=== PATIENT | female | born 1955 | race African-American/Black ===

== ENCOUNTER 2017-01-25 13:48 | Inpatient (IN) | payer MEDICARE, MEDICAID ==
[~2017-01-25] VITALS: Ht 146.1 cm; Wt 43.1 kg
[~2017-01-25 13:48] MED LIST: ALBU6.7H INH; INDO-53 PO; IPRA0.2S51 NEB; OMEP20TA80 PO; PRED10TA PO; PROAIR IH; THEO80SO4 PO; TIOT4MIS2 INH
[2017-01-25] MEDS ORDERED: METHYLPREDNISOLONE SOD SUCC 125 MG/2 ML VIAL IV STA (14:23)
[2017-01-25] MEDS ORDERED: IPRATROPIUM BROMIDE (0.02%) 0.5MG/2.5ML NEB HHN STA (14:23)
[2017-01-25] MEDS ORDERED: ALBUTEROL (0.083%) 2.5MG/3ML NEB HHN SCH (14:30)
[2017-01-25 14:53] LABS: BASOPHILS % 0.4 % (0.0-2.0); EOSINOPHILS % 0.2 % (0.0-5.0); HEMATOCRIT. 40.5 % (36.0-48.0); HEMOGLOBIN. 13.1 g/dL (12.0-16.0); LYMPHOCYTES % 8.3 % (20.0-50.0); MEAN CORPUSCULAR HEMOGLOBIN 28.9 pg (28.0-32.0); MEAN CORPUSCULAR VOLUME 89.5 fL (81.0-99.0); MONOCYTES % 9.2 % (2.0-8.0); NEUTROPHILS % 81.9 % (40.0-76.0); PLATELET 311 x1000/uL (130-400); RED BLOOD CELL COUNT 4.52 mill/uL (4.2-5.4); RED CELL DISTRIBUTION WIDTH 15.5 % (11.6-14.6)
[2017-01-25 15:00] LABS: CHLORIDE 96 mEq/L (98-107)
[2017-01-25 15:09] LABS: TROPONIN I 0.02 ng/mL (0.00-0.04)
[2017-01-25 15:10] LABS: CARBON DIOXIDE 41 mEq/L (21-32)
[2017-01-25 15:12] LABS: *AMPHETAMINES SCREEN URINE NEGATIVE (NEGATIVE); *BARBITURATES SCREEN URINE NEGATIVE (NEGATIVE); *BENZODIAZEPINES SCREEN URINE NEGATIVE (NEGATIVE); *COCAINE SCREEN URINE NEGATIVE (NEGATIVE); CANNABINOID URINE SCREEN NEGATIVE (NEGATIVE); METHADONE URINE SCREEN NEGATIVE (NEGATIVE); OPIATES URINE SCREEN NEGATIVE (NEGATIVE); PHENCYCLIDINE URINE SCREEN NEGATIVE (NEGATIVE)
[2017-01-25 16:18] LABS: BG BASE EXCESS 11.4 mmol/L (-2.0-2.0); BG CARBOXYHEMOGLOBIN 2.9 % (0.5-1.5); BG DEOXYHEMOGLOBIN 0.9 % (0.0-5.0); BG FRACTION INSPIRED OXYGEN 60; BG HCO3 ACT 40.4 mmol/L (22.0-26.0); BG METHEMOGLOBIN 0.7 % (0.0-1.5); BG OXYGEN SATURATION 99.1 % (92.0-98.5); BG OXYHEMOGLOBIN 95.5 % (94.0-97.0); BG PH 7.338 (7.350-7.450); BG PO2 269.8 mmHg (75.0-100.0); BG SAMPLE SITE RIGHT BRACHIAL; BG TOTAL HEMOGLOBIN 13.1 g/dL (12.0-18.0)
[2017-01-25] MEDS ORDERED: LORAZEPAM 0.5MG TABLET PO ONE (16:45)
[2017-01-25] MEDS ORDERED: DOCUSATE SODIUM 100MG CAPSULE PO PRN (18:30)
[2017-01-25] MEDS ORDERED: ONDANSETRON HCL 4MG/2ML VIAL IV PRN (18:30)
[2017-01-25] MEDS ORDERED: LORAZEPAM 2MG/ML CPJ IV PRN (18:30)
[2017-01-25] MEDS ORDERED: NA PHOS,M-B/NA PHOS,DI-BA ENEMA 118ML PR PRN (18:30)
[2017-01-25] MEDS ORDERED: MAGNESIUM/ALUMINUM HYDROXIDE/SIMETHICONE 30ML UDC PO PRN (18:30)
[2017-01-25] MEDS ORDERED: ACETAMINOPHEN 325MG TABLET PO PRN (18:30)
[2017-01-25] MEDS ORDERED: GUAIFENESIN 200MG/10ML SUGAR FREE UDC PO PRN (18:30)
[2017-01-25] MEDS ORDERED: CLONIDINE 0.1MG TABLET PO PRN (18:30)
[2017-01-25 18:42] VITALS: BP 111/81
[2017-01-25 20:00] VITALS: BP 127/90
[2017-01-25] MEDS: IPRATROPIUM/ALBUTEROL 0.5-3(2.5)MG/3ML NEB INH PRN ×2 (20:41→23:54)
[2017-01-25] MEDS: METHYLPREDNISOLONE SOD SUCC 125 MG/2 ML VIAL IV SCH (21:24)
[2017-01-25] MEDS: LEVOFLOXACIN 500MG PREMIX 100 ML IV SCH (21:24)
[2017-01-25 22:00] VITALS: BP 143/89
[2017-01-26] VITALS (10 sets, daily range): BP systolic 136–172; BP diastolic 78–109
[2017-01-26 01:45] LABS: CHLORIDE 95 mEq/L (98-107); TROPONIN I < 0.02 ng/mL (0.00-0.04)
[2017-01-26] MEDS: METHYLPREDNISOLONE SOD SUCC 125 MG/2 ML VIAL IV SCH ×4 (02:25→20:56)
[2017-01-26 02:45] LABS: CARBON DIOXIDE 40 mEq/L (21-32)
[2017-01-26] MEDS: IPRATROPIUM/ALBUTEROL 0.5-3(2.5)MG/3ML NEB INH PRN ×5 (04:14→20:50)
[2017-01-26 06:37] LABS: HEMATOCRIT. 40.8 % (36.0-48.0); HEMOGLOBIN. 13.3 g/dL (12.0-16.0); MEAN CORPUSCULAR HEMOGLOBIN 29.3 pg (28.0-32.0); MEAN CORPUSCULAR VOLUME 89.9 fL (81.0-99.0); MEAN PLATELET VOLUME 8.9 fl (7.4-10.4); PLATELET 320 x1000/uL (130-400); RED BLOOD CELL COUNT 4.53 mill/uL (4.2-5.4); RED CELL DISTRIBUTION WIDTH 15.1 % (11.6-14.6)
[2017-01-26 08:09] LABS: CHLORIDE 94 mEq/L (98-107); LDL CHOLESTEROL 77 mg/dL (5-100); T4 FREE 1.02 ng/dL (0.76-1.46); TROPONIN I < 0.02 ng/mL (0.00-0.04)
[2017-01-26 08:16] LABS: CARBON DIOXIDE 42 mEq/L (21-32)
[2017-01-26] MEDS: ASPIRIN 81MG EC TABLET PO SCH ×2 (09:00→09:51)
[2017-01-26] MEDS: ENOXAPARIN 30MG/0.3ML SYR SUBCUT SCH (09:00)
[2017-01-26] MEDS ORDERED: POTASSIUM CHLORIDE 20MEQ/PACKET PO NR ×2 (09:00→13:00)
[2017-01-26 09:18] LABS: HDL CHOLESTEROL 157 mg/dL (40-59)
[2017-01-26] MEDS: LEVOFLOXACIN 500MG PREMIX 100 ML IV SCH (20:57)
[2017-01-26 20:59] LABS: PLATELET ESTIMATE NORMAL
[2017-01-27] VITALS (11 sets, daily range): BP systolic 121–152; BP diastolic 66–97
[2017-01-27] MEDS: IPRATROPIUM/ALBUTEROL 0.5-3(2.5)MG/3ML NEB INH PRN ×4 (00:57→13:03)
[2017-01-27] MEDS: METHYLPREDNISOLONE SOD SUCC 125 MG/2 ML VIAL IV SCH ×4 (01:24→20:39)
[2017-01-27 07:02] LABS: HEMATOCRIT. 41.4 % (36.0-48.0); HEMOGLOBIN. 13.2 g/dL (12.0-16.0); MEAN CORPUSCULAR HEMOGLOBIN 29.2 pg (28.0-32.0); MEAN CORPUSCULAR VOLUME 91.3 fL (81.0-99.0); MEAN PLATELET VOLUME 8.7 fl (7.4-10.4); PLATELET 316 x1000/uL (130-400); RED BLOOD CELL COUNT 4.54 mill/uL (4.2-5.4); RED CELL DISTRIBUTION WIDTH 15.9 % (11.6-14.6)
[2017-01-27 07:12] LABS: CHLORIDE 97 mEq/L (98-107)
[2017-01-27 08:05] LABS: CARBON DIOXIDE 40 mEq/L (21-32)
[2017-01-27] MEDS: ASPIRIN 81MG EC TABLET PO SCH (08:20)
[2017-01-27] MEDS: ENOXAPARIN 30MG/0.3ML SYR SUBCUT SCH (08:21)
[2017-01-27 14:49] LABS: PLATELET ESTIMATE NORMAL
[2017-01-27] MEDS: IPRATROPIUM/ALBUTEROL 0.5-3(2.5)MG/3ML NEB HHN SCH ×2 (16:10→19:58)
[2017-01-27] MEDS: LEVOFLOXACIN 500MG PREMIX 100 ML IV SCH (20:01)
[2017-01-28] VITALS (10 sets, daily range): BP systolic 120–157; BP diastolic 73–97
[2017-01-28] MEDS: IPRATROPIUM/ALBUTEROL 0.5-3(2.5)MG/3ML NEB HHN SCH ×4 (00:05→13:20)
[2017-01-28] MEDS: METHYLPREDNISOLONE SOD SUCC 125 MG/2 ML VIAL IV SCH ×3 (02:06→13:32)
[2017-01-28 06:34] LABS: HEMATOCRIT. 39.8 % (36.0-48.0); HEMOGLOBIN. 12.7 g/dL (12.0-16.0); MEAN CORPUSCULAR VOLUME 90.8 fL (81.0-99.0); MEAN PLATELET VOLUME 8.9 fl (7.4-10.4); PLATELET 297 x1000/uL (130-400); RED BLOOD CELL COUNT 4.39 mill/uL (4.2-5.4); RED CELL DISTRIBUTION WIDTH 15.4 % (11.6-14.6)
[2017-01-28 06:52] LABS: CARBON DIOXIDE 38 mEq/L (21-32); CHLORIDE 98 mEq/L (98-107)
[2017-01-28] MEDS: ASPIRIN 81MG EC TABLET PO SCH (08:11)
[2017-01-28] MEDS: ENOXAPARIN 30MG/0.3ML SYR SUBCUT SCH (08:11)
[2017-01-28 09:07] LABS: PLATELET ESTIMATE NORMAL
[2017-01-28] MEDS ORDERED: LEVOFLOXACIN 500MG TABLET PO SCH (20:00)
== END 2017-01-28 16:08 | disposition home or self-care (01) | DRG 177 ==
LOC: ER 15:28 → 3WST 16:40 → ENRESERV 17:05
PROVIDERS: ADMIT Internal Medicine; ATTEND Internal Medicine
DX: J69.0 Pneumonitis due to inhalation of food and vomit (principal); J96.00 Acute respiratory failure, unspecified whether with hypoxia or hypercapnia; I11.0 Hypertensive heart disease with heart failure; R65.10 Systemic inflammatory response syndrome (SIRS) of non-infectious origin without acute organ dysfunction; I50.9 Heart failure, unspecified; E46 Unspecified protein-calorie malnutrition; J44.1 Chronic obstructive pulmonary disease with (acute) exacerbation; J44.0 Chronic obstructive pulmonary disease with (acute) lower respiratory infection; Z68.20 Body mass index [BMI] 20.0-20.9, adult; Z79.899 Other long term (current) drug therapy; Z82.49 Family history of ischemic heart disease and other diseases of the circulatory system; Z88.6 Allergy status to analgesic agent; Z91.010 Allergy to peanuts; Z91.018 Allergy to other foods; Z79.51 Long term (current) use of inhaled steroids; Z90.49 Acquired absence of other specified parts of digestive tract
CPT/HCPCS: 36415; 36600; 71010; 80048; 80053; 80061; 80305; 82375; 82805; 83880; 84439; 84443; 84484; 85025; 85610; 93005; 94640; 94664; 96374; 99291; J1650; J1956; J2930; J7050; J7611; J7620

== ENCOUNTER 2017-03-28 09:24 | Inpatient (IN) | payer MEDICARE, MEDICAID ==
[~2017-03-28] VITALS: Ht 144.8 cm; Wt 44.0 kg
[~2017-03-28 09:24] MED LIST changes: +OMEP20TA2 PO; -OMEP20TA80 PO
[2017-03-28] MEDS ORDERED: SODIUM CHLORIDE 0.9% 1,000 ML IV ONE (09:45)
[2017-03-28] MEDS ORDERED: IPRATROPIUM BROMIDE (0.02%) 0.5MG/2.5ML NEB HHN STA (09:52)
[2017-03-28] MEDS ORDERED: ALBUTEROL (0.083%) 2.5MG/3ML NEB HHN STA (09:52)
[2017-03-28] MEDS ORDERED: METHYLPREDNISOLONE SOD SUCC 125 MG/2 ML VIAL IV STA (09:52)
[2017-03-28] MEDS ORDERED: MAGNESIUM 2 G PREMIX 50 ML IV ONE (10:00)
[2017-03-28 10:26] LABS: BASOPHILS % 0.9 % (0.0-2.0); EOSINOPHILS % 0.5 % (0.0-5.0); HEMATOCRIT. 37.8 % (36.0-48.0); LYMPHOCYTES % 9.1 % (20.0-50.0); MEAN CORPUSCULAR VOLUME 87.8 fL (81.0-99.0); MEAN PLATELET VOLUME 8.2 fl (7.4-10.4); MONOCYTES % 8.7 % (2.0-8.0); NEUTROPHILS % 80.8 % (40.0-76.0); PLATELET 417 x1000/uL (130-400); RED CELL DISTRIBUTION WIDTH 13.9 % (11.6-14.6)
[2017-03-28 10:28] LABS: PARTIAL THROMBOPLASTIN TIME 25.7 sec (23.4-31.0)
[2017-03-28 10:37] LABS: CARBON DIOXIDE 33 mEq/L (21-32); CHLORIDE 99 mEq/L (98-107); CREATINE KINASE 127 IU/L (26-192); CREATINE KINASE MB FRACTION 2.8 ng/mL (0.5-3.6); TROPONIN I < 0.02 ng/mL (0.00-0.04)
[2017-03-28] MEDS ORDERED: CLONIDINE 0.1MG TABLET PO PRN (11:00)
[2017-03-28] MEDS ORDERED: ACETAMINOPHEN 325MG TABLET PO PRN (11:00)
[2017-03-28] MEDS ORDERED: ONDANSETRON HCL 4MG/2ML VIAL IV PRN (11:00)
[2017-03-28 11:30] LABS: TOTAL IRON BINDING CAPACITY 426 ug/dL (250-450)
[2017-03-28] MEDS ORDERED: PANTOPRAZOLE SODIUM 40 MG/VIAL IV ONE (12:30)
[2017-03-28 12:46] LABS: BG BASE EXCESS 4.6 mmol/L (-2.0-2.0); BG CARBOXYHEMOGLOBIN 0.8 % (0.5-1.5); BG DEOXYHEMOGLOBIN 0.8 % (0.0-5.0); BG FRACTION INSPIRED OXYGEN 60; BG METHEMOGLOBIN 0.2 % (0.0-1.5); BG OXYGEN SATURATION 99.2 % (92.0-98.5); BG OXYHEMOGLOBIN 98.2 % (94.0-97.0); BG PH 7.291 (7.350-7.450); BG PO2 279.4 mmHg (75.0-100.0); BG SAMPLE SITE RIGHT BRACHIAL; BG TOTAL HEMOGLOBIN 11.7 g/dL (12.0-18.0)
[2017-03-28 13:02] LABS: CLARITY URINE CLEAR (CLEAR); COLOR URINE YELLOW (YELLOW); GLUCOSE URINE NEGATIVE (NEGATIVE); KETONES URINE TRACE (NEGATIVE); LEUKOCYTE ESTERASE URINE NEGATIVE (NEGATIVE); NITRITE URINE NEGATIVE (NEGATIVE); OCCULT BLOOD URINE 2+ (NEGATIVE); PROTEIN URINE NEGATIVE (NEGATIVE); SPECIFIC GRAVITY URINE 1.019 (1.005-1.030); UROBILINOGEN URINE 0.2 E.U./dL (0.2-1.0)
[2017-03-28 13:30] LABS: *AMPHETAMINES SCREEN URINE NEGATIVE (NEGATIVE); *BARBITURATES SCREEN URINE NEGATIVE (NEGATIVE); *BENZODIAZEPINES SCREEN URINE NEGATIVE (NEGATIVE); *COCAINE SCREEN URINE NEGATIVE (NEGATIVE); CANNABINOID URINE SCREEN NEGATIVE (NEGATIVE); METHADONE URINE SCREEN NEGATIVE (NEGATIVE); OPIATES URINE SCREEN NEGATIVE (NEGATIVE); PHENCYCLIDINE URINE SCREEN NEGATIVE (NEGATIVE)
[2017-03-28] MEDS: TRAMADOL 50MG TABLET PO PRN (15:33)
[2017-03-28 17:58] LABS: HEMOGLOBIN 10.9 g/dL (12.0-16.0)
[2017-03-28 22:30] VITALS: BP 125/80
[2017-03-28 23:00] VITALS: BP 125/80
[2017-03-28 23:32] LABS: HEMATOCRIT 34.7 % (36.0-48.0); HEMOGLOBIN 11.2 g/dL (12.0-16.0)
[2017-03-28] MEDS: METHYLPREDNISOLONE SOD SUCC 125 MG/2 ML VIAL IV SCH (23:43)
[2017-03-29] VITALS: BP 128/75
[2017-03-29] MEDS ORDERED: ALEN70TA3 PO (00:32)
[2017-03-29 04:00] VITALS: BP 140/83
[2017-03-29] MEDS: METHYLPREDNISOLONE SOD SUCC 125 MG/2 ML VIAL IV SCH ×3 (05:35→17:32)
[2017-03-29 07:05] LABS: HEMATOCRIT. 34.5 % (36.0-48.0); MEAN PLATELET VOLUME 8.2 fl (7.4-10.4); PLATELET 412 x1000/uL (130-400); RED BLOOD CELL COUNT 3.92 mill/uL (4.2-5.4); RED CELL DISTRIBUTION WIDTH 13.8 % (11.6-14.6)
[2017-03-29 07:43] LABS: CARBON DIOXIDE 32 mEq/L (21-32); CHLORIDE 100 mEq/L (98-107); HDL CHOLESTEROL 108 mg/dL (40-59); LDL CHOLESTEROL 88 mg/dL (5-100)
[2017-03-29 08:00] VITALS: BP 142/77
[2017-03-29] MEDS: IPRATROPIUM/ALBUTEROL 0.5-3(2.5)MG/3ML NEB INH PRN ×3 (08:39→16:24)
[2017-03-29 11:11] LABS: PLATELET ESTIMATE SLIGHTLY INCREASED
[2017-03-29 12:00] VITALS: BP 141/77
[2017-03-29 14:16] LABS: HEMATOCRIT 33.1 % (36.0-48.0); HEMOGLOBIN 10.8 g/dL (12.0-16.0)
[2017-03-29 16:00] VITALS: BP 136/73
[2017-03-29] MEDS ORDERED: BISACODYL 5MG TABLET PO SCH ×2 (16:00→20:00)
[2017-03-29] MEDS ORDERED: SORBITOL 70% SOLN 30ML PO SCH ×2 (16:00→20:00)
[2017-03-29 20:00] VITALS: BP 145/72
[2017-03-29] MEDS: IPRATROPIUM/ALBUTEROL 0.5-3(2.5)MG/3ML NEB INH SCH (20:58)
[2017-03-29 21:58] LABS: BG BASE EXCESS 3.6 mmol/L (-2.0-2.0); BG CARBOXYHEMOGLOBIN 0.3 % (0.5-1.5); BG DEOXYHEMOGLOBIN 8.2 % (0.0-5.0); BG FRACTION INSPIRED OXYGEN 21; BG HCO3 ACT 29.6 mmol/L (22.0-26.0); BG METHEMOGLOBIN 0.3 % (0.0-1.5); BG OXYGEN SATURATION 91.8 % (92.0-98.5); BG OXYHEMOGLOBIN 91.2 % (94.0-97.0); BG PH 7.381 (7.350-7.450); BG PO2 64.8 mmHg (75.0-100.0); BG SAMPLE SITE RIGHT RADIAL; BG TOTAL HEMOGLOBIN 11.5 g/dL (12.0-18.0); BG VENT MODE ROOM AIR
[2017-03-29 23:24] LABS: HEMATOCRIT 34.8 % (36.0-48.0); HEMOGLOBIN 11.4 g/dL (12.0-16.0)
[2017-03-29] MEDS: TRAMADOL 50MG TABLET PO PRN (23:57)
[2017-03-30] VITALS (7 sets, daily range): BP systolic 118–139; BP diastolic 66–80
[2017-03-30] MEDS ORDERED: SORBITOL 70% SOLN 30ML PO NR (00:01)
[2017-03-30] MEDS: THEOPHYLLINE ANHYDROUS 80 MG/15 ML 120ML PO SCH ×4 (00:04→21:55)
[2017-03-30] MEDS: METHYLPREDNISOLONE SOD SUCC 40 MG/ML VIAL IV SCH ×5 (00:30→23:53)
[2017-03-30] MEDS: IPRATROPIUM/ALBUTEROL 0.5-3(2.5)MG/3ML NEB INH SCH ×6 (01:03→21:21)
[2017-03-30 07:12] LABS: INR 0.9; PARTIAL THROMBOPLASTIN TIME 21.7 sec (23.4-31.0); PROTHROMBIN TIME 9.8 sec (9.4-11.6)
[2017-03-30 07:20] LABS: HEMATOCRIT 33.7 % (36.0-48.0); HEMOGLOBIN 10.8 g/dL (12.0-16.0)
[2017-03-30] MEDS ORDERED: SIMETHICONE 40 MG/0.6 ML 30ML ONE (14:10)
[2017-03-30] MEDS ORDERED: SODIUM CHLORIDE 0.9% 10ML VIAL ONE (14:10)
[2017-03-30] MEDS ORDERED: MIDAZOLAM HCL 5 MG/5 ML VIAL ONE (15:58)
[2017-03-30] MEDS ORDERED: FENTANYL CITRATE/PF 50MCG/ML 2ML VIAL ONE (15:58)
[2017-03-30 16:14] LABS: HEMATOCRIT 30.7 % (36.0-48.0); HEMOGLOBIN 9.9 g/dL (12.0-16.0)
[2017-03-30] MEDS ORDERED: FENTANYL CITRATE/PF 50MCG/ML 2ML VIAL IV PRN (16:18)
[2017-03-30] MEDS ORDERED: MIDAZOLAM HCL 5 MG/5 ML VIAL IV PRN (16:18)
[2017-03-30 23:40] LABS: HEMATOCRIT 31.8 % (36.0-48.0); HEMOGLOBIN 10.2 g/dL (12.0-16.0)
[2017-03-31] VITALS: BP 125/63
[2017-03-31] MEDS: IPRATROPIUM/ALBUTEROL 0.5-3(2.5)MG/3ML NEB INH SCH ×6 (01:35→20:41)
[2017-03-31 04:00] VITALS: BP 125/75
[2017-03-31] MEDS: THEOPHYLLINE ANHYDROUS 80 MG/15 ML 120ML PO SCH ×3 (05:46→23:12)
[2017-03-31 08:00] VITALS: BP 124/55
[2017-03-31] MEDS: METHYLPREDNISOLONE SOD SUCC 40 MG/ML VIAL IV SCH ×2 (09:34→16:04)
[2017-03-31 12:00] VITALS: BP 132/70
[2017-03-31 16:00] VITALS: BP 124/74
[2017-03-31 20:00] VITALS: BP 131/70
[2017-04-01] MEDS: IPRATROPIUM/ALBUTEROL 0.5-3(2.5)MG/3ML NEB INH SCH ×4 (00:32→12:08)
[2017-04-01 04:00] VITALS: BP 127/63
[2017-04-01 06:28] LABS: HEMOGLOBIN. 10.5 g/dL (12.0-16.0); MEAN CORPUSCULAR HEMOGLOBIN 27.6 pg (28.0-32.0); MEAN CORPUSCULAR VOLUME 87.2 fL (81.0-99.0); MEAN PLATELET VOLUME 8.6 fl (7.4-10.4); PLATELET 541 x1000/uL (130-400); RED BLOOD CELL COUNT 3.78 mill/uL (4.2-5.4); RED CELL DISTRIBUTION WIDTH 13.8 % (11.6-14.6)
[2017-04-01 06:30] LABS: CARBON DIOXIDE 35 mEq/L (21-32); CHLORIDE 98 mEq/L (98-107)
[2017-04-01] MEDS: THEOPHYLLINE ANHYDROUS 80 MG/15 ML 120ML PO SCH ×2 (06:34→13:59)
[2017-04-01 08:00] VITALS: BP 121/68
[2017-04-01] MEDS ORDERED: PREDNISONE 20MG TABLET PO SCH (09:00)
[2017-04-01] MEDS ORDERED: POTASSIUM CHLORIDE 20MEQ TABLET SR PO NR (11:30)
[2017-04-01 12:00] VITALS: BP 121/75
[2017-04-01 13:09] VITALS: BP 121/75
[2017-04-01 17:17] LABS: PLATELET ESTIMATE INCREASED
== END 2017-04-01 17:10 | disposition home or self-care (01) | DRG 377 ==
LOC: ER 09:24 → 8WST 10:42 → EDBEDREQSVC 10:43 → EDBEDREQ 10:43 → EDBEDREQTM 10:43 → ENRESERV 18:41 → CANRESERV 18:41 → EDBEDREQSVC 21:05 → ENRESERV 21:21
PROVIDERS: ADMIT Internal Medicine Nephrology; ATTEND Internal Medicine Nephrology
PROC: 0DJD8ZZ Inspection of Lower Intestinal Tract, Via Natural or Artificial Opening Endoscopic (ICD-10-PCS; principal; 2017-03-30 16:00)
DX: K92.2 Gastrointestinal hemorrhage, unspecified (principal); J96.21 Acute and chronic respiratory failure with hypoxia; E87.2 Acidosis; E46 Unspecified protein-calorie malnutrition; J44.1 Chronic obstructive pulmonary disease with (acute) exacerbation; K57.30 Diverticulosis of large intestine without perforation or abscess without bleeding; K64.8 Other hemorrhoids; I10 Essential (primary) hypertension; M19.90 Unspecified osteoarthritis, unspecified site; D72.829 Elevated white blood cell count, unspecified; E78.5 Hyperlipidemia, unspecified; M10.9 Gout, unspecified; T38.0X5A Adverse effect of glucocorticoids and synthetic analogues, initial encounter; Y92.89 Other specified places as the place of occurrence of the external cause; Z82.49 Family history of ischemic heart disease and other diseases of the circulatory system; Z87.891 Personal history of nicotine dependence; Z90.49 Acquired absence of other specified parts of digestive tract; Z68.21 Body mass index [BMI] 21.0-21.9, adult; Z88.6 Allergy status to analgesic agent; Z91.010 Allergy to peanuts; Z88.8 Allergy status to other drugs, medicaments and biological substances; Z91.018 Allergy to other foods; Z87.11 Personal history of peptic ulcer disease; Z79.01 Long term (current) use of anticoagulants
CPT/HCPCS: 36415; 36600; 71010; 74176; 80048; 80053; 80061; 80198; 80305; 81001; 82270; 82375; 82550; 82553; 82805; 83540; 83550; 83690; 83880; 84484; 85014; 85018; 85025; 85610; 85730; 86850; 86900; 87040; 87086; 93005; 93306; 93970; 94640; 94644; 94664; 96365; 96375; 99152; 99153; 99291; A4216; C1893; C9113; J2250; J2920; J2930; J3010; J3475; J7030; J7512; J7611; J7620

== ENCOUNTER 2017-08-23 08:37 | Inpatient (IN) | payer MEDICARE, MEDICAID ==
[~2017-08-23] VITALS: Ht 152.4 cm; Wt 42.7 kg
[2017-08-23] VITALS (7 sets, daily range): BP systolic 123–154; BP diastolic 85–109
[~2017-08-23 08:37] MED LIST changes: +ALBU6.7H IH; -ALBU6.7H INH; +ALEN70TA3 PO; -INDO-53 PO; +INDO50CA2 PO; -IPRA0.2S51 NEB; -PRED10TA PO; +PRED5TAB48 PO; -THEO80SO4 PO
[2017-08-23] MEDS ORDERED: METHYLPREDNISOLONE SOD SUCC 125 MG/2 ML VIAL IV STA (08:56)
[2017-08-23] MEDS ORDERED: IPRATROPIUM BROMIDE (0.02%) 0.5MG/2.5ML NEB HHN STA (08:56)
[2017-08-23] MEDS ORDERED: ALBUTEROL (0.083%) 2.5MG/3ML NEB HHN STA (08:56)
[2017-08-23] MEDS ORDERED: MAGNESIUM 2 G PREMIX 50 ML IV ONE (09:45)
[2017-08-23 10:44] LABS: CHLORIDE 91 mEq/L (98-107)
[2017-08-23 10:50] LABS: TROPONIN I 0.31 ng/mL (0.00-0.04)
[2017-08-23 10:53] LABS: HEMATOCRIT. 38.3 % (36.0-48.0); HEMOGLOBIN. 11.4 g/dL (12.0-16.0); MEAN CORPUSCULAR HEMOGLOBIN 24.6 pg (28.0-32.0); MEAN CORPUSCULAR VOLUME 82.6 fL (81.0-99.0); MEAN PLATELET VOLUME 8.7 fl (7.4-10.4); PARTIAL THROMBOPLASTIN TIME 21.6 sec (23.4-31.0); PLATELET 393 x1000/uL (130-400); RED BLOOD CELL COUNT 4.64 mill/uL (4.2-5.4); RED CELL DISTRIBUTION WIDTH 21.1 % (11.6-14.6)
[2017-08-23] MEDS ORDERED: FUROSEMIDE 40MG/4ML VIAL IVP ONE (11:00)
[2017-08-23 11:59] LABS: PLATELET ESTIMATE NORMAL
[2017-08-23] MEDS: AMLODIPINE 10MG TABLET PO SCH (12:30)
[2017-08-23] MEDS ORDERED: ACETAMINOPHEN 325MG TABLET PO PRN (12:30)
[2017-08-23] MEDS: ASPIRIN 325MG EC TABLET PO SCH (12:30)
[2017-08-23] MEDS ORDERED: NITROGLYCERIN 0.4MG TABLET SL SL PRN (12:30)
[2017-08-23] MEDS ORDERED: DOCUSATE SODIUM 100MG CAPSULE PO PRN (12:30)
[2017-08-23] MEDS ORDERED: TRAMADOL 50MG TABLET PO PRN (12:30)
[2017-08-23] MEDS ORDERED: DIPHENHYDRAMINE 50MG/ML VIAL IV PRN (12:30)
[2017-08-23] MEDS ORDERED: IPRATROPIUM/ALBUTEROL 0.5-3(2.5)MG/3ML NEB INH PRN (12:30)
[2017-08-23] MEDS ORDERED: CLONIDINE 0.1MG TABLET PO PRN (12:30)
[2017-08-23] MEDS ORDERED: NA PHOS,M-B/NA PHOS,DI-BA ENEMA 118ML PR PRN (12:30)
[2017-08-23] MEDS ORDERED: ENOXAPARIN 40MG/0.4ML SYR SUBCUT SCH (12:30)
[2017-08-23] MEDS ORDERED: MAGNESIUM/ALUMINUM HYDROXIDE/SIMETHICONE 30ML UDC PO PRN (12:30)
[2017-08-23] MEDS ORDERED: KETOROLAC 15MG/ML VIAL IV PRN (12:30)
[2017-08-23] MEDS ORDERED: ZOLPIDEM TARTRATE 5MG TABLET PO PRN (12:30)
[2017-08-23] MEDS ORDERED: LORAZEPAM 0.5MG TABLET PO PRN (12:30)
[2017-08-23] MEDS ORDERED: MORPHINE SULFATE 4 MG/ML CPJ (NOT FOR IM USE) IV PRN (12:30)
[2017-08-23] MEDS: ENOXAPARIN 30MG/0.3ML SYR SUBCUT SCH (12:30)
[2017-08-23] MEDS ORDERED: ONDANSETRON HCL 4MG/2ML VIAL IV PRN (12:30)
[2017-08-23] MEDS: IPRATROPIUM/ALBUTEROL 0.5-3(2.5)MG/3ML NEB HHN SCH ×3 (13:05→21:37)
[2017-08-23] MEDS: HYDRALAZINE HCL 50MG TABLET PO SCH ×2 (14:00→22:00)
[2017-08-23] MEDS: METHYLPREDNISOLONE SOD SUCC 125 MG/2 ML VIAL IV SCH ×2 (14:35→22:20)
[2017-08-23] MEDS: GUAIFENESIN 200MG/10ML SUGAR FREE UDC PO PRN ×2 (14:36→19:41)
[2017-08-23] MEDS ORDERED: LEVOFLOXACIN 500MG PREMIX 100 ML IV NR (15:00)
[2017-08-23 15:23] LABS: CREATINE KINASE MB FRACTION 13.2 ng/mL (0.5-3.6); TROPONIN I 0.26 ng/mL (0.00-0.04)
[2017-08-23] MEDS: GUAIFENESIN 600MG ER TABLET PO SCH (22:20)
[2017-08-24] VITALS (11 sets, daily range): BP systolic 140–165; BP diastolic 72–103
[2017-08-24 00:08] LABS: CREATINE KINASE MB FRACTION 8.1 ng/mL (0.5-3.6); TROPONIN I 0.2 ng/mL (0.00-0.04)
[2017-08-24] MEDS: IPRATROPIUM/ALBUTEROL 0.5-3(2.5)MG/3ML NEB HHN SCH ×6 (01:09→20:23)
[2017-08-24] MEDS: GUAIFENESIN 200MG/10ML SUGAR FREE UDC PO PRN ×4 (04:12→21:15)
[2017-08-24] MEDS: HYDRALAZINE HCL 50MG TABLET PO SCH ×3 (05:37→21:16)
[2017-08-24] MEDS: METHYLPREDNISOLONE SOD SUCC 125 MG/2 ML VIAL IV SCH ×3 (05:38→21:16)
[2017-08-24] MEDS: AMLODIPINE 10MG TABLET PO SCH (09:00)
[2017-08-24] MEDS: ENOXAPARIN 30MG/0.3ML SYR SUBCUT SCH (09:00)
[2017-08-24] MEDS: ASPIRIN 325MG EC TABLET PO SCH (09:00)
[2017-08-24] MEDS: PANTOPRAZOLE SODIUM 40 MG/VIAL IV SCH (09:08)
[2017-08-24] MEDS: GUAIFENESIN 600MG ER TABLET PO SCH ×2 (09:15→21:15)
[2017-08-24] MEDS: LEVOFLOXACIN 250MG PREMIX 50 ML IV SCH (15:15)
[2017-08-25] VITALS: BP 158/99
[2017-08-25] MEDS: IPRATROPIUM/ALBUTEROL 0.5-3(2.5)MG/3ML NEB HHN SCH ×6 (00:10→17:34)
[2017-08-25 04:00] VITALS: BP 169/87
[2017-08-25] MEDS: METHYLPREDNISOLONE SOD SUCC 125 MG/2 ML VIAL IV SCH ×2 (05:34→14:47)
[2017-08-25] MEDS: HYDRALAZINE HCL 50MG TABLET PO SCH ×2 (05:35→14:00)
[2017-08-25] MEDS: AMLODIPINE 10MG TABLET PO SCH (07:49)
[2017-08-25] MEDS: ENOXAPARIN 30MG/0.3ML SYR SUBCUT SCH (07:49)
[2017-08-25] MEDS: ASPIRIN 325MG EC TABLET PO SCH (07:49)
[2017-08-25 07:59] VITALS: BP 155/104
[2017-08-25] MEDS: GUAIFENESIN 200MG/10ML SUGAR FREE UDC PO PRN ×2 (08:09→16:54)
[2017-08-25] MEDS: PANTOPRAZOLE SODIUM 40 MG/VIAL IV SCH (08:09)
[2017-08-25] MEDS: GUAIFENESIN 600MG ER TABLET PO SCH (08:12)
[2017-08-25 12:00] VITALS: BP 153/83
[2017-08-25] MEDS: LEVOFLOXACIN 250MG PREMIX 50 ML IV SCH (16:36)
[2017-08-25 16:57] VITALS: BP 129/81
[2017-08-25 17:22] VITALS: BP 129/81
[2017-08-25 18:18] LABS: BG CARBOXYHEMOGLOBIN 0.6 % (0.5-1.5); BG DEOXYHEMOGLOBIN 1.3 % (0.0-5.0); BG FRACTION INSPIRED OXYGEN 30; BG HCO3 ACT 48.4 mmol/L (22.0-26.0); BG METHEMOGLOBIN 0.6 % (0.0-1.5); BG OXYGEN SATURATION 98.7 % (92.0-98.5); BG OXYHEMOGLOBIN 97.5 % (94.0-97.0); BG PCO2 109.4 mmHg (35.0-45.0); BG PH 7.264 (7.350-7.450); BG PO2 169.9 mmHg (75.0-100.0); BG SAMPLE SITE LEFT RADIAL; BG TOTAL HEMOGLOBIN 11.6 g/dL (12.0-18.0); BG VENT MODE NASAL CANNULA
[2017-08-26] MEDS ORDERED: FAMOTIDINE 20MG TABLET PO SCH (09:00)
== END 2017-08-25 19:55 | disposition left against medical advice (07) | DRG 280 ==
LOC: ER 08:37 → ENRESERV 10:18 → 5EST 10:19 → EDBEDREQ 10:24 → 5WST 08-25 09:30 → 5EST 08-25 18:40
PROVIDERS: ADMIT Internal Medicine; ATTEND Internal Medicine
PROC: 5A09357 Assistance with Respiratory Ventilation, Less than 24 Consecutive Hours, Continuous Positive Airway Pressure (ICD-10-PCS; principal; 2017-08-23)
DX: I21.4 Non-ST elevation (NSTEMI) myocardial infarction (principal); J96.01 Acute respiratory failure with hypoxia; J44.1 Chronic obstructive pulmonary disease with (acute) exacerbation; E87.1 Hypo-osmolality and hyponatremia; I11.0 Hypertensive heart disease with heart failure; E83.51 Hypocalcemia; Z53.21 Procedure and treatment not carried out due to patient leaving prior to being seen by health care provider; D63.8 Anemia in other chronic diseases classified elsewhere; I10 Essential (primary) hypertension; Z87.891 Personal history of nicotine dependence; Z91.14 Patient's other noncompliance with medication regimen; Z88.6 Allergy status to analgesic agent; Z91.018 Allergy to other foods; Z88.8 Allergy status to other drugs, medicaments and biological substances; Z79.51 Long term (current) use of inhaled steroids; Z79.899 Other long term (current) drug therapy
CPT/HCPCS: 36415; 36600; 71045; 80053; 80061; 82375; 82550; 82553; 82805; 82962; 83036; 83605; 83690; 83880; 84484; 85025; 85610; 85730; 86850; 86900; 87040; 93005; 93970; 94640; 94644; 94660; 96374; 96375; 99291; C1893; C9113; J1940; J1956; J2930; J3475; J7050; J7611; J7620